=== PATIENT | male | born 1940 | race Caucasian/White ===

== ENCOUNTER 2021-04-03 17:46 | Emergency (ER) | payer BC, MEDICARE, OTHER ==
[~2021-04-03] VITALS: Ht 185.4 cm; Wt 84.2 kg
[~2021-04-03 17:46] MED LIST: ALLO100T PO; BICA50TA48 PO; FOLI1TAB16 PO; GABA-530 PO; LISI2.5T89 PO; METF500T PO; OMEP20CA15 PO
[2021-04-03 19:46] VITALS: BP 122/50
[2021-04-04] MEDS ORDERED: TROS20TA4 PO (17:23)
[2021-04-04] MEDS ORDERED: VITA-268 PO (17:23)
[2021-04-04] MEDS ORDERED: PREG150C PO (17:23)
== END 2021-04-04 01:20 | disposition left against medical advice (07) ==
LOC: ER 17:47
DX: N23 Unspecified renal colic (principal); Z53.21 Procedure and treatment not carried out due to patient leaving prior to being seen by health care provider